=== PATIENT | female | born 1995 | race American Indian/Alaskan Native ===

== ENCOUNTER 2019-11-30 15:34 | Emergency (ER) | payer SELFPAY ==
--- NOTE | 2019-11-30 16:42 | Event Note ---
ED Screening Note Date of service: 11/30/19 Time: 16:40 ED Screening Note: This is a 24 y.o. F. that presents to the ER with lower abdominal pain x 4 days. LMP 10/26/19, A0 + N/V - Diarrhea, chest pain, SOB, vaginal discharge, urinary frequency, urgency, dysuria This initial assessment/diagnostic orders/clinical plan/treatment(s) is/are subject to change based on patients health status, clinical progression and re- assessment by fellow clinical providers in the ED. Further treatment and workup at subsequent clinical providers discretion. Patient/guardian urged not to elope from the ED as their condition may be serious if not clinically assessed and managed. Initial orders include: Labs
[2019-11-30 17:15] LABS: Basophils # (Auto) 0.1 K/mm3 (0.0-0.1); Basophils % (Auto) 0.9 % (0.0-1.8); Eosinophils # (Auto) 0.1 K/mm3 (0.0-0.4); Eosinophils % (Auto) 0.8 % (0.0-4.3); Hematocrit 33.4 % (30.3-42.9); Hemoglobin 10.8 gm/dl (10.1-14.3); Lymphocytes # (Auto) 2.6 K/mm3 (1.2-5.4); Lymphocytes % (Auto) 26.7 % (13.4-35.0); Mean Corpuscular HGB Conc 32 % (30-34); Mean Corpuscular Volume 78 fl (79-97); Monocytes # (Auto) 0.4 K/mm3 (0.0-0.8); Monocytes % (Auto) 4.5 % (0.0-7.3); Platelet Count 289 K/mm3 (140-440); Red Blood Count 4.26 M/mm3 (3.65-5.03); Red Cell Distribution Width 19.8 % (13.2-15.2)
[2019-11-30 17:42] LABS: Alanine Aminotransferase 11 units/L (7-56); Albumin 4.3 g/dL (3.9-5); BUN/Creatinine Ratio 19; Blood Urea Nitrogen 13 mg/dL (7-17); Calcium 8.9 mg/dL (8.4-10.2); Hemolysis Index 0
[2019-11-30] MEDS ORDERED: ACETAMINOPHEN 500 MG TAB PO ONE (19:59)
[2019-11-30] MEDS ORDERED: IBUPROFEN 600 MG TAB PO ONE (19:59)
[2019-11-30] MEDS ORDERED: AMOXICILLIN/K CLAV 875/125MG TAB PO ONE (20:01)
[2019-11-30 20:16] LABS: Bacteria,Urine 1+ /HPF (Negative); Bilirubin,Urine NEG (Negative); Blood,Urine SM (Negative); Color,Urine Straw (Yellow); Mucus,Urine FEW /HPF; Protein,Urine <15 mg/dL mg/dL (Negative); Urobilinogen,Urine < 2.0 mg/dL (<2.0)
--- NOTE | 2019-11-30 20:20 | Emergency Department Report ---
ED General Adult HPI - General Chief complaint: Abdominal Pain Stated complaint: STOMACH PAIN EXTREME/RT SIDE FACE Time Seen by Provider: 11/30/19 16:39 Source: patient Mode of arrival: Ambulatory Limitations: No Limitations - History of Present Illness Initial comments: Patient is a 24-year-old -[place] female who presents to the ED with complaint of acute onset persistent painful swollen left mandibular gum and premolar and molar toothache for the last 2 days. Patient states that she has not been able to eat anything because of severe pain. Patient denies fever, chills, nausea, vomiting, diarrhea, dyspnea, chest pain, shortness of breath, headache, dizziness, sore throat, syncope or change in vision. MD Complaint: left mandibular swelling; dental pain -: Sudden, days(s) (2) Location: mouth Radiation: non-radiation Severity scale (0 -10): 7 Quality: aching, sharp Consistency: constant Improves with: none Worsens with: none Associated Symptoms: denies other symptoms. denies: confusion, chest pain, cough, diaphoresis, fever/chills, headaches, loss of appetite, malaise, nausea/vomiting, seizure, shortness of breath, syncope, weakness Treatments Prior to Arrival: none - Related Data Previous Rx's Medication Instructions Recorded Last Taken Type Acetaminophen/Codeine [Tylenol 1 tab PO Q6H PRN #12 tab 11/30/19 Unknown Rx /Codeine # 3 tab] Amoxicillin/Potassium Clav 1 each PO Q12H #20 tablet 11/30/19 Unknown Rx [Augmentin 875-125 Tablet] Ketorolac [Toradol] 10 mg PO Q8H PRN #20 tablet 11/30/19 Unknown Rx Allergies Allergy/AdvReac Type Severity Reaction Status Date / Time No Known Allergies Allergy Unverified 11/30/19 15:35 ED Review of Systems ROS: Stated complaint: STOMACH PAIN EXTREME/RT SIDE FACE Other details as noted in HPI Constitutional: denies: chills, fever Eyes: denies: eye pain, eye discharge, vision change ENT: dental pain (Severely painful left mandibular premolar and molar toothache), other (Swelling, painful left mandibular gums). denies: ear pain, throat pain Respiratory: denies: cough, shortness of breath, wheezing Cardiovascular: denies: chest pain, palpitations Endocrine: no symptoms reported Gastrointestinal: denies: abdominal pain, nausea, diarrhea Genitourinary: denies: urgency, dysuria, discharge Musculoskeletal: denies: back pain, joint swelling, arthralgia Skin: denies: rash, lesions Neurological: denies: headache, weakness, paresthesias Psychiatric: denies: anxiety, depression Hematological/Lymphatic: denies: easy bleeding, easy bruising ED Past Medical Hx - Past Medical History Previous Medical History?: No - Surgical History Past Surgical History?: No - Medications Home Medications: Home Medications Medication Instructions Recorded Confirmed Last Taken Type Acetaminophen/Codeine [Tylenol 1 tab PO Q6H PRN #12 tab 11/30/19 Unknown Rx /Codeine # 3 tab] Amoxicillin/Potassium Clav 1 each PO Q12H #20 tablet 11/30/19 Unknown Rx [Augmentin 875-125 Tablet] Ketorolac [Toradol] 10 mg PO Q8H PRN #20 tablet 11/30/19 Unknown Rx ED Physical Exam - General Limitations: No Limitations General appearance: alert, in no apparent distress - Head Head exam: Present: atraumatic, normocephalic, normal inspection - Eye Eye exam: Present: normal appearance, PERRL, EOMI Pupils: Present: normal accommodation - ENT ENT exam: Present: mucous membranes moist, TM's normal bilaterally, normal external ear exam, other (Swollen, severely tender left mandibular gingiva; severely tender left mandibular premolar and molar teeth) - Neck Neck exam: Present: normal inspection, full ROM, lymphadenopathy. Absent: tenderness - Respiratory Respiratory exam: Present: normal lung sounds bilaterally. Absent: respiratory distress, wheezes, rales, rhonchi, chest wall tenderness, accessory muscle use, decreased breath sounds - Cardiovascular Cardiovascular Exam: Present: regular rate, normal rhythm, normal heart sounds. Absent: systolic murmur, diastolic murmur, rubs, gallop - GI/Abdominal GI/Abdominal exam: Present: soft, normal bowel sounds. Absent: tenderness, guarding, rebound, hyperactive bowel sounds, hypoactive bowel sounds - Extremities Exam Extremities exam: Present: normal inspection, full ROM, normal capillary refill - Back Exam Back exam: Present: normal inspection, full ROM. Absent: tenderness, CVA tenderness (L), muscle spasm, paraspinal tenderness, vertebral tenderness - Neurological Exam Neurological exam: Present: alert, oriented X3, CN II-XII intact, normal gait, reflexes normal - Psychiatric Psychiatric exam: Present: normal affect, normal mood - Skin Skin exam: Present: warm, dry, intact, normal color. Absent: rash ED Course Vital Signs 11/30/19 16:09 Temperature 98.3 F Pulse Rate 87 Respiratory 18 Rate Blood Pressure 138/72 [Right] O2 Sat by Pulse 100 Oximetry ED Medical Decision Making - Lab Data Result diagrams: 11/30/19 16:52 11/30/19 16:52 - Medical Decision Making This is a 24-year-old female who presented to the ED with painful swollen left mandibular gums with a severely painful premolar and molar teeth for the last 2 days. In the ED, patient is alert and oriented x3 and is not in any distress with normal vital signs. Based on the physical exam findings patient has acute gingivitis and multiple dental caries and suspected premolar and molar dental abscesses. Patient was discharged home on antibiotics and pain medications and advised to follow-up with a dentist at the [facility] in 7 to 10 days for reevaluation. Patient was advised to return to the ED immediately if symptoms get worse. - Differential Diagnosis gingivitis; dental abscess; dental caries Critical care attestation.: If time is entered above; I have spent that time in minutes in the direct care of this critically ill patient, excluding procedure time. ED Disposition Clinical Impression: Dental abscess, Acute gingivitis, Dental caries Disposition: TO HOME OR SELFCARE Is pt being admited?: No Does the pt Need Aspirin: No Condition: Stable Instructions: Dental Abscess (ED), Dental Caries (ED), Gingivitis (ED) Additional Instructions: Take medications with food, drink plenty of fluids and follow-up with your primary care physician or dentist in 5 to 7 days for reevaluation. Return to the ED immediately if symptoms get worse. Prescriptions: Amoxicillin/Potassium Clav [Augmentin 875-125 Tablet] 1 each PO Q12H #20 tablet Ketorolac [Toradol] 10 mg PO Q8H PRN #20 tablet PRN Reason: Pain Acetaminophen/Codeine [Tylenol /Codeine # 3 tab] 1 tab PO Q6H PRN #12 tab PRN Reason: Pain , Severe (7-10) Referrals: [facility] [Outside] - 3-5 Days [place] [Outside] - 3-5 Days Time of Disposition: 20:17 Print Language: STATELESS
[2019-11-30 20:39] VITALS: BP 132/90
== END 2019-11-30 20:38 | disposition home or self-care (01) ==
LOC: ED 15:34
DX: K02.9 Dental caries, unspecified (principal); K04.7 Periapical abscess without sinus; K05.00 Acute gingivitis, plaque induced
CPT/HCPCS: 36415; 80053; 81001; 83690; 84703; 85025